=== PATIENT | female | born 1975 | race Two or more races ===

== ENCOUNTER 2016-03-19 05:25 | Inpatient (IN) | payer OTHER ==
--- NOTE | 2016-03-17 13:25 | EKG REPORT ---
SEVERITY:- BORDERLINE ECG - SINUS RHYTHM INFERIOR Q WAVES, PROBABLY NORMAL VARIATION : Confirmed by: Mukesh Medina MD 17-Mar-2016 13:24:43
[2016-03-17 13:42] LABS: APPEARANCE,URINE CLEAR; BILIRUBIN,URINE NEGATIVE (NEGATIVE); GLUCOSE, URINE NEGATIVE (NEGATIVE); KETONES,URINE NEGATIVE (NEGATIVE); LEUKOCYTE ESTERASE,URINE NEGATIVE (NEGATIVE); NITRITE,URINE NEGATIVE (NEGATIVE); PROTEIN,URINE NEGATIVE (NEGATIVE); URINE SPECIFIC GRAVITY 1.018; UROBILINOGEN,URINE NEGATIVE mg/dL (<2.0)
[2016-03-17 13:44] LABS: HEMATOCRIT 41.7 % (36.0-47.0); HEMOGLOBIN 13.8 g/dL (12.0-15.5); HGB HCT DIFFERENCE -0.3; MEAN CORPUSCULAR HEMOGLOBIN 29.5 pg (27.0-33.4); MEAN CORPUSCULAR HGB CONC 33.2 g/dL (32.0-36.0); MEAN CORPUSCULAR VOLUME 89 fl (80-97); RED CELL DISTRIBUTION WIDTH 13.7 % (11.5-14.0); WHITE BLOOD COUNT 8.5 10^3/uL (4.0-10.5)
[2016-03-17 13:58] LABS: ANION GAP 14 (5-19); BLOOD UREA NITROGEN 11 mg/dL (7-20); CALCIUM 9.3 mg/dL (8.4-10.2); CARBON DIOXIDE 25 mmol/L (22-30); CHLORIDE 102 mmol/L (98-107); CREATININE RESULT 0.57 mg/dL (0.52-1.25); GLUCOSE 87 mg/dL (75-110); POTASSIUM 4.3 mmol/L (3.6-5.0); SODIUM 140.9 mmol/L (137-145)
[~2016-03-19 05:25] MED LIST: CEFAZOLIN SODIUM 1 GM in DEXTROSE 5%-WATER 50 ML IV PRN; LACTATED RINGERS 1000 ML IV PRN; LIDOCAINE 0.5% INJ-PF (5 MG/ML) 50 ML SDV SUBCUT PRN
[2016-03-19] MEDS ORDERED: HYDROMORPHONE HCL INJ/PF 2 MG/ML AMPULE ONE (07:08)
[2016-03-19] MEDS ORDERED: FENTANYL CITRATE INJ/PF 250 MCG/5 ML AMPULE ONE (07:08)
[2016-03-19] MEDS ORDERED: MIDAZOLAM 2 MG/2 ML INJ ONE (07:09)
[2016-03-19] MEDS ORDERED: PROPOFOL INJ 200 MG/20 ML VIAL IV ONE (07:09)
[2016-03-19] MEDS ORDERED: ACETAMINOPHEN 100 ML IV ONE (07:09)
[2016-03-19] MEDS ORDERED: MORPHINE SULFATE 10 MG/ML INJ IV PRN (07:42)
[2016-03-19] MEDS ORDERED: MEPERIDINE HCL/PF INJ 25 MG/1 ML DISP.SYRIN IV PRN (07:42)
[2016-03-19] MEDS ORDERED: FENTANYL CITRATE INJ/PF 100 MCG/2 ML AMPUL IV PRN ×3 (07:42)
[2016-03-19] MEDS ORDERED: OXYCODONE-ACETAMINOPHEN 5-325 MG TABLET PO PRN ×3 (07:42→09:34)
[2016-03-19] MEDS ORDERED: PROMETHAZINE HCL INJ 25 MG/1 ML VIAL IV PRN ×2 (07:42)
[2016-03-19] MEDS ORDERED: DIPHENHYDRAMINE HCL 50 MG/ML VIAL IV PRN (07:42)
[2016-03-19] MEDS ORDERED: ALBUTEROL SULFATE HFA (90 MCG/PUFF) 200 PUFF/8.5 GM MDI IH ONE (08:47)
[2016-03-19] MEDS: FENTANYL CITRATE INJ/PF 100 MCG/2 ML AMPUL ONE ×2 (08:54→09:16)
[2016-03-19] MEDS ORDERED: RINGERS SOLUTION,LACTATED 1,000 ML IV PRN (09:33)
[2016-03-19] MEDS ORDERED: MORPHINE SULFATE 10 MG/ML INJ INJ PRN (09:36)
[2016-03-19] MEDS ORDERED: MORPHINE SULFATE 10 MG/ML INJ IM PRN (09:36)
[2016-03-19] MEDS ORDERED: PROMETHAZINE HCL INJ 25 MG/1 ML VIAL IM PRN (09:37)
--- NOTE | 2016-03-19 10:10 | OPERATIVE REPORT E ---
Operative Report NAME: CHASITY NAILS : 1975 AGE: 40Y DATE OF SURGERY: 03/19/2016 ROOM: 207 PREOPERATIVE DIAGNOSES: 1. . 2. Dysmenorrhea. POSTOPERATIVE DIAGNOSES: 1. . 2. Dysmenorrhea. PROCEDURE: Total vaginal hysterectomy. SURGEON: VEDA CANNON M.D. COMPLICATIONS: None. ANESTHESIA: General endotracheal. ESTIMATED BLOOD LOSS: 150 mL. FINDINGS: Normal sized uterus, possible fibroid. Ovaries were palpated to be normal. No enterocele formation. INDICATIONS FOR PROCEDURE: The patient had progressive menorrhagia and dysmenorrhea, unresponsive to usual outpatient management. She desired definitive therapy. The usual risks of bleeding, infection, anesthesia, and damage to organs and tissues have been discussed and the patient understood. DESCRIPTION OF PROCEDURE: The patient was taken to the operating room and placed in the modified lithotomy position. Adequate anesthesia was ascertained and she was prepped and draped in the usual manner for hysterectomy via posterior colpotomy incision. Surgical timeout was performed and antibiotics were given. Colpotomy was performed and weighted speculum was placed within the peritoneal cavity. Uterosacral ligaments were crossclamped, cut, suture ligated, and held. The cervix was circumscribed, bladder was clamped sequentially, and device. The ligament . . DICTATING PHYSICIAN: VEDA CANNON M.D. [id number] PHY#: [id number] ID: [id number] JOB#: [id number] ACCT: [id number] cc:VEDA CANNON M.D. >
[2016-03-19] MEDS ORDERED: ALBUTEROL IH PRN (10:13)
[2016-03-19] MEDS ORDERED: ALBUTEROL SULFATE HFA (90 MCG/PUFF) 200 PUFF/8.5 GM MDI IH PRN (10:40)
[2016-03-19] MEDS: IBUPROFEN 800 MG TABLET PO SCH ×3 (10:53→17:38)
[2016-03-19] MEDS ORDERED: LIDOCAINE 2% INJ-PF (20 MG/ML) 10 ML AMPUL ONE (10:59)
[2016-03-19] MEDS ORDERED: SUCCINYLCHOLINE CHLORIDE INJ 200 MG/10 ML VIAL ONE (10:59)
[2016-03-19] MEDS ORDERED: DEXAMETHASONE SOD PHOSPHATE INJ 4 MG/1 ML VIAL ONE (10:59)
[2016-03-19] MEDS ORDERED: ONDANSETRON HCL INJ/PF 4 MG/2 ML SDV ONE (10:59)
[2016-03-19] MEDS: CEFAZOLIN SODIUM 1 GM in DEXTROSE 5%-WATER 50 ML IV SCH ×2 (12:18→17:39)
[2016-03-19] MEDS: MORPHINE SULFATE 10 MG/ML INJ INJ PRN ×2 (12:19→20:37)
[2016-03-19] MEDS: METFORMIN HCL 500 MG TABLET PO SCH ×2 (14:20→22:52)
[2016-03-19] MEDS: OXYCODONE-ACETAMINOPHEN 5-325 MG TABLET PO PRN ×2 (17:38→22:54)
[2016-03-19] MEDS ORDERED: METFORMIN HCL 750 MG PO SCH (18:00)
[2016-03-19] MEDS ORDERED: MONTELUKAST SODIUM 10 MG TABLET PO SCH (22:00)
[2016-03-20] MEDS: METFORMIN HCL 500 MG TABLET PO SCH (05:50)
[2016-03-20] MEDS: OXYCODONE-ACETAMINOPHEN 5-325 MG TABLET PO PRN ×2 (05:50→08:17)
[2016-03-20 06:33] LABS: HEMATOCRIT 37.5 % (36.0-47.0); HEMOGLOBIN 12.5 g/dL (12.0-15.5); MEAN CORPUSCULAR HEMOGLOBIN 29.1 pg (27.0-33.4); MEAN CORPUSCULAR HGB CONC 33.4 g/dL (32.0-36.0); MEAN CORPUSCULAR VOLUME 87 fl (80-97); RED CELL DISTRIBUTION WIDTH 13.4 % (11.5-14.0); WHITE BLOOD COUNT 14.2 10^3/uL (4.0-10.5)
--- NOTE | 2016-03-20 08:33 | OPERATIVE REPORT E ---
Operative Report NAME: CHASITY NAILS : 1975 AGE: 40Y DATE OF SURGERY: 03/19/2016 ROOM: 207 PREOPERATIVE DIAGNOSES: 1. Menorrhagia. 2. Dysmenorrhea. POSTOPERATIVE DIAGNOSES: 1. Menorrhagia. 2. Dysmenorrhea. PROCEDURE: Total vaginal hysterectomy. SURGEON: VEDA CANNON M.D. COMPLICATIONS: None. ANESTHESIA: General endotracheal. ESTIMATED BLOOD LOSS: 150 mL. FINDINGS: Normal sized uterus, possible fibroid was palpated. Ovaries were palpated to be normal. No enterocele formation. INDICATIONS FOR PROCEDURE: The patient had progressive menorrhagia and dysmenorrhea, unresponsive to usual outpatient management. She desired definitive therapy. The usual risks of bleeding, infection, anesthesia, and damage to organs and tissues have been discussed and the patient understood. DESCRIPTION OF PROCEDURE: The patient was taken to the operating room and placed in the modified lithotomy position after adequate anesthesia ascertained. She was prepped and draped in the usual manner for hysterectomy. Surgical timeout was performed, EUA performed, and antibiotics were given. A weighted speculum was placed in the posterior aspect of the vagina and a posterior colpotomy incision was made. Uterosacral ligaments were crossclamped, cut, suture ligated, and held. The cervix was circumscribed. The bladder was advanced sequentially at this aspect of the procedure, reflecting the bladder and ureters anteriorly with a narrow Renee retractor. The lower broad ligament, uterosacral ligament, and cardinal ligament as well as uterine vessels were cross-clamped, cut, suture ligated, and free tied with a combination of surgical cautery with LigaSure device as well as 0-Vicryl stitch. The pedicles were then identified, suture ligated and free tied with 0-Vicryl stitch. The cervix and uterus handed off the operative field. All pedicles were noted to be dry at this point. The vagina was then closed with interrupted cat gut in an anterior to posterior fashion. Good hemostasis was confirmed. The patient was awakened and taken to the recovery room in stable condition. The bladder was left drained. DICTATING PHYSICIAN: VEDA CANNON M.D. [id number] Y#: [id number] ID: [id number] JOB#: [id number] ACCT: [id number] cc:VEDA CANNON M.D. >
[2016-03-20] MEDS ORDERED: LANSOPRAZOLE 15 MG TAB.RAP.DR PO SCH (10:00)
[2016-03-20] MEDS ORDERED: (PENDING PHARMACY ID) (Esomeprazole Magnesium [Nexium] 20 MG) PO SCH (10:00)
[2016-03-20] MEDS: IBUPROFEN 800 MG TABLET PO SCH (10:02)
[2016-03-20] MEDS ORDERED: OXYCODONE-ACETAMINOPHEN 5-325 MG TABLET PO ONE (11:30)
[2016-03-20 11:56] VITALS: BP 107/62
== END 2016-03-20 13:20 | disposition home or self-care (01) | DRG 743 ==
LOC: INOR 05:25 → EDSTATUS 07:15 → 2N 09:45
PROVIDERS: ADMIT Specialist; ATTEND Specialist
PROC: 0UTC7ZZ Resection of Cervix, Via Natural or Artificial Opening (ICD-10-PCS; 2016-03-19)
PROC: 0UT97ZZ Resection of Uterus, Via Natural or Artificial Opening (ICD-10-PCS; principal; 2016-03-19 07:15)
DX: D25.9 Leiomyoma of uterus, unspecified (principal); N94.5 Secondary dysmenorrhea; N94.6 Dysmenorrhea, unspecified; N80.9 Endometriosis, unspecified; E11.9 Type 2 diabetes mellitus without complications; J45.909 Unspecified asthma, uncomplicated; Z90.49 Acquired absence of other specified parts of digestive tract
CPT/HCPCS: 36415; 71020; 80048; 81001; 81025; 82962; 85027; 86850; 86900; 86901; 88307; 93005; 93010; 944; 94799; J0131; J0330; J0690; J1100; J1170; J2250; J2270; J2405; J2704; J3010; J3490